=== PATIENT | female | born 1990 | race Caucasian/White ===

== ENCOUNTER 2017-04-10 19:41 | Emergency (ER) | payer OTHER ==
[~2017-04-10] VITALS: Ht 170.2 cm; Wt 71.8 kg
[2017-04-10] MEDS ORDERED: WELLBUTRIN75 MG PO (21:15)
[2017-04-10 21:26] LABS: HEMATOCRIT 41.5 % (36.0-46.0); MCH 28.4 PG (29.0-34.0); MCHC 34.2 G/DL (30.0-36.0); MEAN PLAT.VOLUME 9.6 uM^3 (9.5-12.4); PLATELET COUNT 291 K/uL (156-360); RBC DIS.WIDTH-SD 36.2 % (39-53); WHITE BLOOD COUNT 9.2 K/uL (4.1-10.2)
[2017-04-10 21:38] LABS: CHLORIDE 107 mEq/L (99-109); POTASSIUM 4.3 mEq/L (3.7-5.4); SODIUM 141 mEq/L (136-147)
[2017-04-10 21:40] LABS: GLUCOSE 110 mg/dL (70-99)
[2017-04-10 21:41] LABS: ANION GAP 8 MEQ/L (2-14)
[2017-04-10 21:44] LABS: GFR ESTIMATE (CALCULATED) > 59 mL/min/
[2017-04-10 21:45] LABS: UREA NITROGEN (BUN) 13 mg/dL (9-23)
[2017-04-10 21:52] LABS: QUANTITATIVE HCG < 4.0 MIU/ML
[2017-04-10 22:03] LABS: ADD MIUA? NO; BILIRUBIN NEGATIVE; BLOOD NEGATIVE; COLOR STRAW ((YELLOW)); GLUCOSE (STRIP) NEGATIVE; KETONES NEGATIVE; LEUKOCYTES NEGATIVE; NITRITE NEGATIVE; PROTEIN (STRIP) NEGATIVE; SPECIFIC GRAVITY 1.009 (1.000-1.030); UCUL ADDED? NO; UROBILINOGEN 0.2 MG/DL (0.2-1.0)
[2017-04-10 22:44] VITALS: BP 128/89
== END 2017-04-10 22:54 | disposition home or self-care (01) ==
LOC: EME 19:41 → RME 19:41
PROVIDERS: Physician Assistant
DX: R42 Dizziness and giddiness (principal)
CPT/HCPCS: 80048; 81003; 84702; 85027; 93005; 99281; 99284